=== PATIENT | male | born 1990 | race African-American/Black ===

== ENCOUNTER 2018-12-10 13:36 | Emergency (ER) | payer SELFPAY ==
[2018-12-10] MEDS ORDERED: ALBUTEROL SULFATE 0.083% NEB 2.5 MG/3 ML AMPUL NEB ONE (13:49)
[2018-12-10] MEDS ORDERED: IPRATROPIUM/ALBUTEROL 0.5-2.5 MG/3 ML AMPUL NEB ONE ×3 (13:49→17:06)
[2018-12-10] MEDS ORDERED: METHYLPREDNISOLONE INJ 125 MG/2 ML SDV IM ONE (13:49)
--- NOTE | 2018-12-10 13:51 | ER Document Report ---
ED Medical Screen (RME) - General Chief Complaint: Breathing Difficulty Stated Complaint: DIFFICULTY BREATHING Time Seen by Provider: 12/10/18 13:47 Mode of Arrival: Ambulatory Information source: Patient Notes: 28-year-old male presents to ED for shortness of breath and cough with inspiratory and expiratory wheezes. He states the wheezing started bad last night. He is allergic to cat and he has a cat and his girlfriend has a cat. States he does not have a history of asthma that he knows of but he is very tight very short of breath with inspiratory and expiratory wheezes that she can hear across the room. I have greeted and performed a rapid initial assessment of this patient. A comprehensive ED assessment and evaluation of the patient, analysis of test results and completion of medical decision making process will be conducted by an additional ED providers. - Related Data Allergies/Adverse Reactions: No Known Allergies Allergy (Unverified 12/10/18 13:45) Physical Exam - Vital signs Vitals: Temp Pulse Resp BP Pulse Ox 98.1 F 92 28 H 138/79 H 100 12/10/18 13:41 12/10/18 13:41 12/10/18 13:41 12/10/18 13:41 12/10/18 13:41 Course - Vital Signs Vital signs: Temp Pulse Resp BP Pulse Ox 98.1 F 92 28 H 138/79 H 100 12/10/18 13:41 12/10/18 13:41 12/10/18 13:41 12/10/18 13:41 12/10/18 13:41
--- NOTE | 2018-12-10 14:28 | RADIOLOGY REPORT (SQ) ---
EXAM DESCRIPTION: CHEST 2 VIEWS COMPLETED DATE/TIME: 12/10/2018 2:18 pm REASON FOR STUDY: short of breath COMPARISON: None. TECHNIQUE: Frontal and lateral radiographic views of the chest acquired. NUMBER OF VIEWS: Two view. LIMITATIONS: None. FINDINGS: LUNGS AND PLEURA: No opacities, masses or pneumothorax. No pleural effusion. MEDIASTINUM AND HILAR STRUCTURES: No masses or contour abnormalities. HEART AND VASCULAR STRUCTURES: Heart normal size. No evidence for failure. BONES: No acute findings. HARDWARE: None in the chest. OTHER: No other significant finding. IMPRESSION: NO SIGNIFICANT RADIOGRAPHIC FINDING IN THE CHEST. TECHNICAL DOCUMENTATION: JOB ID: [id number] [employer]- All Rights Reserved Reading location - IP/workstation name: [email or web address]
--- NOTE | 2018-12-10 16:20 | ER Document Report ---
ED General - General Chief Complaint: Shortness Of Breath Stated Complaint: DIFFICULTY BREATHING Time Seen by Provider: 12/10/18 13:47 Primary Care Provider: [facility] [Provider Group] - Follow up in 3-5 days [facility] [Provider Group] - Follow up in 3-5 days Mode of Arrival: Ambulatory Notes: Patient is a 28-year-old male with a history of allergies who presents the emergency department with a chief complaint of shortness of breath. Patient has felt short of breath about 72 hours. Patient denies any chest pain. Patient states that he has been around his girlfriend's cat and laying with her. He apparently is allergic to cats. He has been taking Benadryl and Flaquita to help with his shortness of breath, but has had little relief. Patient denies any his tory of asthma. Does not take any medications. TRAVEL OUTSIDE OF THE [place] IN LAST 30 DAYS: No - Related Data Allergies/Adverse Reactions: No Known Allergies Allergy (Unverified 12/10/18 13:45) Past Medical History - General Information source: Patient - Social History Smoking Status: Unknown if Ever Smoked Family History: Reviewed & Not Pertinent Patient has suicidal ideation: No Patient has homicidal ideation: No Review of Systems - Review of Systems Notes: REVIEW OF SYSTEMS: CONSTITUTIONAL : Denies recent illness. Denies recent unintentional weight loss. Denies fever, chills, or sweats. EENT: Denies eye, ear, throat, or mouth pain, discharge, or symptoms. Denies nasal or sinus congestion. CARDIOVASCULAR: Denies chest pain. RESPIRATORY: See HPI. GASTROINTESTINAL: Denies nausea, vomiting, and diarrhea. Denies abdominal pain. Denies constipation. GENITOURINARY: Denies difficulty urinating, burning, blood in urine, urgency or frequency. MUSCULOSKELETAL: Denies neck and back pain. Denies joint pain or swelling. SKIN: Denies rash, itchiness, or lesions HEMATOLOGIC : Denies easy bruising or bleeding. LYMPHATIC: Denies swollen, painful, enlarged glands. NEUROLOGICAL: Denies no numbness or tingling denies weakness. Denies headache. Denies altered mental status. Denies alteration in speech. PSYCHIATRIC: Denies stress, anxiety, alteration in sleep patterns, or depression. All other systems reviewed and negative. Physical Exam - Vital signs Vitals: Temp Pulse Resp BP Pulse Ox 98.1 F 92 28 H 138/79 H 100 12/10/18 13:41 12/10/18 13:41 12/10/18 13:41 12/10/18 13:41 12/10/18 13:41 - Notes Notes: PHYSICAL EXAMINATION: GENERAL: Appears well, healthy, well-nourished, no acute distress. HEAD: Normocephalic, atraumatic. EYES: PERRL, conjunctiva normal, all extraocular movements intact, sclera nonicteric ENT: Moist mucous membranes. NECK: Supple, no noticeable swelling, redness, rash. Normal range of motion. LUNGS: Equal breath sounds with expiratory wheezes noted throughout. CARDIOVASCULAR: S1-S2, regular rate, regular rhythm. Radial pulses 2+, normal. ABDOMEN: Normoactive bowel sounds. Soft, nontender, no guarding, no rebound tenderness, and no masses palpated. EXTREMITIES: Normal strength and range of motion, no pitting or edema. No cyanosis. NEUROLOGICAL: Moves all extremities upon command. Strength 5/5 in all extremities. PSYCH: Normal mood, normal affect. SKIN: Warm, dry. No rash, lesions, ulcerations noted. Normal skin turgor. Course - Re-evaluation Re-evalutation: 12/10/18 16:21 I reevaluated the patient after receiving a DuoNeb and albuterol treatment. Patient still has expiratory wheezes noted throughout all lung [place]. Patient received a second DuoNeb treatment. 12/10/18 18:05 Patient has received his third DuoNeb treatment, magnesium, and Solu-Medrol. He still has expiratory wheezes throughout. I have offered the patient admission here into the hospital. He decided that he would like to go home and he will follow-up here in the emergency department if needed. Patient does not have a primary care provider. He will be referred to the [facility] [place]. He will also be sent home with an albuterol treatment. Follow-up precautions were given. Verbal discharge instructions were given to the patient. They verbalized understanding. They are stable for discharge. - Vital Signs Vital signs: Temp Pulse Resp BP Pulse Ox 98.1 F 92 24 H 142/78 H 97 12/10/18 13:41 12/10/18 13:41 12/10/18 18:01 12/10/18 18:01 12/10/18 18:01 Discharge - Discharge Clinical Impression: Shortness of breath, Wheezing Condition: Stable Disposition: HOME, SELF-CARE Additional Instructions: You were seen today in the emergency department for shortness of breath. This is most likely due to your allergies. You are being sent home with steroids. Please take all your medication as prescribed. You are also being sent home with an albuterol inhaler. Take 2 puffs every 4 hours for the next 24 hours. If you feel you need to continue the albuterol, please continue it. Please follow-up with 1 of the clinics below. If you feel like your symptoms are worsening or feel short of breath, please return to the emergency department immediately. Prescriptions: Prednisone [Deltasone 20 mg Tablet] 20 tab PO ASDIR 5 Days tablet Referrals: [facility] [Provider Group] - Follow up in 3-5 days [facility] [Provider Group] - Follow up in 3-5 days
[2018-12-10] MEDS: MAGNESIUM SULFATE/D5W 1 GM/100 ML RTUPB IV SCH ×2 (17:24→17:48)
[2018-12-10 18:05] VITALS: BP 142/78
[2018-12-10] MEDS ORDERED: ALBUTEROL SULFATE HFA (90 MCG/PUFF) 8 GM MDI (1 MDI/ER DISP) IH PRN (18:07)
== END 2018-12-10 18:19 | disposition home or self-care (01) ==
LOC: ER 13:36
DX: R06.02 Shortness of breath (principal); R06.2 Wheezing
CPT/HCPCS: 71046; J2930; J3475; J3490; J7620; 94640; 96365; 96372; 99284